=== PATIENT | female | born 1985 | race African-American/Black ===

== ENCOUNTER → 2018-07-29 | Outpatient (CLI) | payer OTHER ==
[2014-10-11 00:19] VITALS: BP 128/85
--- NOTE | 2018-07-29 11:49 | KCIC ---
EXAM: Obstetrics sonogram. HISTORY: anatomy survey. TECHNIQUE: Sonographic imaging of a gravid uterus was performed. COMPARISON: None. FINDINGS: There is a single intrauterine fetus in breech presentation with a heart rate of 157 bpm. There is normal body motion. There is a normal anatomic fluid index of 15.5 cm. There is a posterior placenta without evidence of placenta previa. The cervix is closed and measures 3.9 cm in length. The stomach, kidneys, bladder, spine, brain, facial profile, extremities and heart are unremarkable. There is a three-vessel umbilical cord with normal insertion. The biparietal diameter is 5.51 cm, corresponding with 22 weeks and 6 days. The head circumference is 20.92 cm, corresponding with 23 weeks and 0 days. The abdominal circumference is 18.77 cm, corresponding with 23 weeks and 4 days. The femoral length is 4.00 cm, corresponding with 22 weeks and 6 days. The estimated gestational age based on combined ultrasound measurements is 23 weeks and 1 day and the estimated weight is 574 g. The estimated weight is at the 6th percentile for an estimated gestational age of 26 weeks and 6 days based on LMP. The MIGUELINA based on ultrasound measurements is 11/24/2018. IMPRESSION: 1. Single intrauterine fetus with an estimated gestational age based on ultrasound measurements of 23 weeks and 1 day and heart rate of 157 bpm. The estimated weight is at the 6th percentile for an estimated gestational age of 26 weeks and 6 days based on LMP. This is likely due to a long follicular phase and inaccurate ovulation dating. 2. Unremarkable anatomy survey. Electronically signed by: Jossy Haddad MD (07/29/2018 11:45 AM) [email or web address]
== END | disposition home or self-care (01) ==
LOC: KCIC US 10:32
PROVIDERS: ATTEND Obstetrics & Gynecology
DX: O09.212 Supervision of pregnancy with history of pre-term labor, second trimester (principal); O26.842 Uterine size-date discrepancy, second trimester; Z3A.23 23 weeks gestation of pregnancy
CPT/HCPCS: 76805